=== PATIENT | female | born 2000 | race Caucasian/White ===

== ENCOUNTER 2022-06-08 22:43 | Emergency (ER) | payer OTHER, SELFPAY ==
[2022-06-08 22:45] VITALS: BP 109/84; PULSE 96; RESP 18; TEMP 36.4; O2SAT 99; BMI 29.7
--- NOTE | 2022-06-08 22:56 | CT_ITS ---
STUDY: CT BRAIN WITHOUT CONTRAST REASON FOR EXAM: Female, 21 years old. head trauma RADIATION DOSAGE (If Supplied By Facility): CTDIvol = ( ) mGy, DLP = ( ) mGycm TECHNIQUE: Transaxial CT imaging of the brain was performed without administration of intravenous contrast material. Individualized dose optimization techniques were used for this CT. COMPARISON: No relevant priors. FINDINGS: Normal soft tissue structures. Normal calvarium. Normal size ventricles and extra-axial spaces for the patient''s age. Normal white matter tracts of the cerebral hemispheres. Normal basal ganglia and thalami. Normal brainstem. Normal cerebellum. There is no intracranial hemorrhage. There are no findings of an acute ischemic infarction. Prominent M1 segment of the right middle cerebral artery in correlation with CTA would be useful to exclude aneurysm. Normal visualized paranasal sinuses. CT/Brain/Head without Contrast IMPRESSION: 1. No acute abnormality. 2. Possible aneurysm of the M1 segment of the right middle cerebral artery in correlation with CT angiogram would be useful. Electronically Signed: Manas Rico MD at 23:34 EDT ,
--- NOTE | 2022-06-08 22:56 | EX.ED.GENINJ ---
HPI History of Present Illness Chief Complaint: Head Injury Detail of Chief Complaint: Syncopal event Informant: patient Onset/Context/Timing Onset: Today Mechanism/Context: Blunt Injury and Fall Current Severity: Mild Maximum Severity: Mild Associated Symptoms Associated Symptoms: Positive for Loss of consciousness; Negative for Parasthesias, Weakness, Loss of function, Inability to ambulate or Amnesia Narrative Narrative: 21-year-old female denies any significant past medical history had some type of abdominal surgery as a small child. States she was in a softball tournament today in [place]. She did not eat any breakfast or lunch today. She went to [employer] after her first game to get something to eat around 3:00 and she had a syncopal episode. She has had syncopal episodes before when she gave blood. Prior to the episode she denied any headache, chest pain, shortness of breath or other complaints. Said when she fell she hit the back of her head on the cement. Did have LOC but thinks that may have been with the syncope. She has had nausea and a headache. No vomiting. She did take Tylenol earlier today. She denies any other complaints. She has had no recent illness. Prior similar symptoms: Yes Recent Illness/Hospitalization: No PFSH PFSH Medical History no medical history no medical history Home Medications NK 06/08/22 [History Last Taken Unknown] Allergy/AdvReac Type Severity Reaction Status Date / Time No Known Allergies Allergy Verified 06/08/22 22:47 Social History Smoking Status: Never smoker ROS ROS ED ROS Narrative Denies recent illness. She is nauseated and has had a headache post head injury. Review of Systems ROS Unobtainable: Denies due to encephalopathy Constitutional Constitutional ED: Denies chills or fever(s) Eyes Eyes: Denies blurry vision ENT ENT ED: Denies ear pain Cardiovascular Cardiovascular: Denies chest pain Respiratory/Chest Respiratory/Chest: Denies cough or dyspnea Gastrointestinal Gastrointestinal: Reports nausea; Denies abdominal pain, constipation, diarrhea, melena or vomiting Genitourinary Genitourinary ED: Denies dysuria or hematuria Musculoskeletal Musculoskeletal: Denies arthralgias Integumentary Denies abscess Neurologic Neurologic: Reports headache(s) Psychiatric Psychiatric: Denies anxiety Endocrine Endocrinology: Denies cold intolerance Hematologic/Lymphatic Hematologic/Lymphatic: Denies easy bleeding Allergic/Immunologic Allergic/Immunologic ED: Denies mouth swelling or tongue swelling EXAM Physical Exam Narrative Exam Narrative: 21-year-old female no acute distress. Vital signs stable afebrile. Pulse ox 90% on room air no signs hypoxia. H EENT exam pupils round reactive light. No facial trauma. Moist Riis membranes. Posterior scalp is hematoma and tenderness. No laceration. C-spine nontender. Normal range of motion. Trachea midline. Back nontender. Spine nontender. Lungs clear to auscultation. Chest wall nontender. Heart regular rate and rhythm rate about 90 no murmur. Abdomen soft nontender. Pelvic girdle intact. Moving all 4 extremities. Neurovascularly intact. Normal range of motion. Normal data control assistant strength. Normal dorsi plantar flexion. Neurologic exam normal. NIH is 0. GCS of 15. She is awake alert. Answering questions and following commands. She knows month, date and year. Const Vital Signs: 06/08/22 22:45 06/08/22 23:24 Temperature 97.6 F L Temperature Source Temporal Pulse Rate 96 Respiratory Rate 18 Respiratory Effort Normal Non-Labored Respiratory Depth Normal Respiratory Pattern Normal Blood Pressure 109/84 H Blood Pressure Mean 92 Pulse Ox 99 Oxygen Delivery Method Room Air Room Air Positive well nourished and well developed; Negative for cachectic, contractures or unkempt General Appearance ED: well developed and NAD; Negative for unkempt, cachectic or contractures Nutritional Appearance: Negative for cachectic HEENT trauma and tenderness; Negative for atraumatic Eyes PERRL and EOMs intact bilaterally General Eye ED: Negative for other Neck full ROM General: Negative for tenderness or other Chest Wall inspection of chest normal and palpation of chest normal Breast/Axilla Inspection: Negative for other Resp normal respiratory effort and clear to auscultation bilaterally Effort and Inspection: Negative for pain with movement Auscultation: Negative for rales, rhonchi or wheezes Cardio regular rhythm, S1 normal heart sound, S2 normal heart sound and no murmurs Palpation: Negative for palpable S3 or palpable S4 Rate: regular rate; Negative for bradycardia or tachycardic Rhythm: Negative for abnormal rhythm GI normal to inspection, nondistended, normoactive bowel sounds, non-tender, non-distended and no masses Inspection: Negative for abdominal distention Auscultation: normoactive bowel sounds Palpation: soft; Negative for tender or guarding Rectal Exam: visual inspection normal Back/Spine normal to inspection and no thoracic nor lumbar tenderness General Back: Negative for CVA tenderness Thoracic Spine / Upper Back: Negative for thoracic spinal tenderness Extremity normal to inspection and full ROM General Extremety ED: Negative for deformity or edema General Extremity: Negative for deformity or edema Neuro oriented x3, CN's II-XII intact bilaterally, moves all extremities, no focal motor deficits and no sensory deficits noted [place] Coma Scale: document GCS findings Spontaneous Obeys Commands Oriented 15 Sensorium / Orientation: alert, oriented to person, oriented to place and oriented to time; Negative for orientation impaired, lethargic or stuporous Motor Exam: strength 5/5 throughout; Negative for strength abnormal or muscle tone abnormal Psych mental status grossly normal and thought process normal Appearance: Negative for unkempt Attitude: No agitated Mood & Affect: Negative for depressed, anxious or tearful Skin no rashes or lesions noted, no wounds, skin turgor normal and no jaundice General Skin Exam: Negative for other Rashes: No rashes noted Trauma: Negative for abrasion Wounds: Negative for wounds noted MDM MDM MDM Narrative Medical decision making narrative: 21-year-old female syncopal event. Normal exam other than tenderness to her head whether she had a syncope and then fell or when she hit her head and was knocked out there is a contusion she is complaining of a headache and nausea CAT scan will be obtained. She will be given Zofran for nausea. Currently her neurologic exam is normal and her GCS is 15. CT of the brain without contrast showed no acute bleed there was a questionable aneurysm as read by the radiologist he requested a CTA be performed. I discussed that with the patient I explained her my clinical suspicion was low and at worst this would be an incidental finding but we need more information she agreed to get the CTA be obtained. It did not show any aneurysm. She will be discharged home with head injury instructions. Repeat exam she is doing well at 12:33 AM. Radiography Diagnostic Testing: Clinical Impression(s) from Imaging Studies Brain CT 06/08/22 22:56 IMPRESSION: 1. No acute abnormality. 2. Possible aneurysm of the M1 segment of the right middle cerebral artery in correlation with CT angiogram would be useful. 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 These findings may be secondary to a normal variant or vasculitis. However, no stenotic areas are identified. Electronically Signed: Manas Rico MD at 0:27 EDT , Discharge Plan Triage Chief Complaint: Head Injury ED Provider: Juan Jung Dx/Rx/DC Orders Clinical Impression: Syncope, Head injury, Concussion Instructions: ED Head Injury (Adult), ED Fainting, Uncertain Cause Prescriptions: No Action NK Primary Care Provider: Care Physician,No Primary Referrals: Romel Hardin MD [Med Staff - Medical Billing Coder] - As Needed NOT,DEFINED [Non-Staff] - Activity Restrictions/Additional Instructions: Plenty of fluids and rest. Tylenol for any headaches. Follow-up with your doctor if not improving or return if feeling a lot worse. Disposition Disposition: Home, Self Care
--- NOTE | 2022-06-08 23:39 | CT_ITS ---
STUDY: CTA OF THE BRAIN REASON FOR EXAM: Female, 21 years old. Possible aneurysm on plain CT without contrast per rad RADIATION DOSAGE (If Supplied By Facility): CTDIvol = ( 18.45 ) mGy, DLP = ( 352.29 ) mGycm TECHNIQUE: CT angiography was performed with a multi-detector CT scanner. Data acquisition was obtained from the skull base through the vertex following intravenous administration of IV 100mL [id number]. MIP images were reconstructed from the axial data set. Post-processing of the angiographic images was performed, with multiplanar reformation and 3D reconstruction. Individualized dose optimization techniques were used for this CT. COMPARISON: None. FINDINGS: Normal right petrous carotid artery. Fusiform dilatation of the petrous left internal carotid artery and cavernous left internal carotid artery measuring 6 mm in diameter whereas on the right this measures 3 mm in diameter. However, there is no evidence of saccular aneurysm. Normal right cavernous carotid artery with a normal supraclinoid bifurcation. Fusiform dilatation of the supraclinoid right internal carotid artery continuing into the M1 segment of the right middle cerebral artery measuring 4 mm in diameter where as on the left this measures 2 mm in diameter. This tapers to normal caliber within the distal M1 segment. No saccular aneurysm of the segment is identified. Normal right A1 segments of the anterior cerebral artery. There is non-visualization of the left A1 segment of the anterior cerebral arteries consistent with either aplastic development or an occlusion. Normal intact anterior communicating artery (ACOM). Normal bilateral A2 segments of the anterior cerebral arteries. Normal right M1 and M2 segments of the middle cerebral arteries, with a normal M1 bifurcation. Normal left M1 and M2 segments of the middle cerebral arteries, with a normal M1 bifurcation. Normal right posterior communicating artery (PCOM). Normal left posterior communicating artery (PCOM). Normal bilateral vertebral arteries. Normal basilar artery with a normal basilar bifurcation. The visualized bilateral superior cerebellar (SCA) arteries are normal. There is fusiform dilatation of the P1 segment of the posterior cerebral arteries bilaterally without definite saccular aneurysm. There is no demonstrated aneurysm of the [place]. There is no demonstrated abnormality of the visualized brain. 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 These findings may be secondary to a normal variant or vasculitis. However, no stenotic areas are identified. Electronically Signed: Manas Rico MD at 0:27 EDT ,
[2022-06-08] MEDS: Acetaminophen 500 MG Tablet 1000 MG PO (23:59)
[2022-06-09 00:33] VITALS: BP 105/88; PULSE 88; RESP 15; O2SAT 96
== END 2022-06-09 00:40 | disposition home or self-care (01) ==
PROVIDERS: Emergency Provider Emergency Medicine; Visit Provider Emergency Medicine
DX: S06.0X9A Concussion with loss of consciousness of unspecified duration, initial encounter (principal); W19.XXXA Unspecified fall, initial encounter; Y93.89 Activity, other specified; Y99.8 Other external cause status; Y92.89 Other specified places as the place of occurrence of the external cause; R55 Syncope and collapse
CPT/HCPCS: 70450; 70496; 99284; Q9967; A4216